=== PATIENT | female | born 1965 | race Caucasian/White ===

== ENCOUNTER 2016-10-02 11:47 | Emergency (ER) | payer OTHER ==
[~2016-10-02] VITALS: Ht 152.4 cm; Wt 60.0 kg
[2016-10-02 11:50] VITALS: BP 126/88; PULSE 96; RESP 18; TEMP 98.2; O2SAT 97
--- NOTE | 2016-10-02 12:10 | PD ---
HPI Chief Complaint: Injury Time Seen by Provider: 12:03 Travel History International Travel<30 days: No Contact w/Intl Traveler<30days: No Traveled to known affect area: No History of Present Illness HPI 50-year-old female visiting from [facility] presents to the emergency Department with pain and swelling to the right distal dorsal foot with localized swelling, warmth, and ecchymosis into the third fourth toes. Patient states possibly 5 days ago she had a "foot cramp" which lasted according to her 3 hours. She denies any specific injury. She denies fever, chills, but the patient's sister who is here with her states there was redness and streaking earlier today. Patient has no history of cellulitis or MRSA in the past. She has no history of gout. Patient is here until Saturday of this week. She feels her pain and swelling is getting worse, to the point of not being able to bear weight today. Her pain right now is a 6 out of 10 worse with ambulation or bearing weight. Patient flew down to [place] yesterday. [facility] Social History Alcohol Use: Yes Tobacco Use: No Substance Use: No Allergies-Medications (Allergen,Severity, Reaction): Coded Allergies: No Known Allergies (Unverified , 10/02/16) Review of Systems Except as stated in HPI: all other systems reviewed are Neg General / Constitutional: No: Fever Eyes: No: Visual changes HENT: No: Headaches Cardiovascular: No: Chest Pain or Discomfort Respiratory: No: Shortness of Breath Gastrointestinal: No: Abdominal Pain Genitourinary: No: Dysuria Musculoskeletal: Positive: Arthralgias, Limited ROM, Pain Skin: No Rash Neurologic: No: Weakness Psychiatric: No: Depression Endocrine: No: Polydipsia Hematologic/Lymphatic: No: Easy Bruising Physical Exam Narrative GENERAL: Patient is in no acute distress SKIN: Warm and dry. Normal color. Normal turgor. Patient has mild erythema, ecchymosis, and swelling to the distal dorsal foot on the right just proximal to the third and fourth toes. There are no obvious breaks in the skin between the toes. It has mild increased warmth compared to the surrounding tissue. HEAD: Atraumatic. Normocephalic. EYES: Pupils equal and round. No scleral icterus. No injection or drainage. ENT: No nasal bleeding or discharge. Mucous membranes pink and moist. Pharynx is clear. Airway is patent. NECK: Trachea midline. Supple and nontender. CARDIOVASCULAR: Regular rate and rhythm. RESPIRATORY: No accessory muscle use. Clear to auscultation. Breath sounds equal bilaterally. MUSCULOSKELETAL: Extremities without clubbing, cyanosis, or edema. No obvious deformities. Mild swelling to the distal dorsal right foot. Pain is localized to the dorsum but not the sole of the right foot. NEUROLOGICAL: Awake and alert. No obvious cranial nerve deficits. Motor grossly within normal limits. Five out of 5 muscle strength in the arms and legs. Normal speech. PSYCHIATRIC: Appropriate mood and affect; insight and judgment normal. Data Data Last Documented VS Vital Signs Date Time Temp Pulse Resp B/P Pulse Ox O2 Delivery O2 Flow Rate FiO2 10/02/16 11:50 98.2 96 18 126/88 97 Orders Foot, Complete ([id number]) (10/02/16 12:02) Ice/Cold Pack (10/02/16 12:02) MDM Medical Decision Making Medical Screen Exam Complete: Yes Emergency Medical Condition: Yes Differential Diagnosis Fracture. Contusion. Cellulitis. Tendinitis. Narrative Course Patient is medically stable at time of exam. Ice was applied to the tender area. X-ray of the right foot is ordered. X-ray shows a small nondisplaced fracture of the second metatarsal. Patient is placed in a postop shoe. Patient is to take Tylenol as needed, elevate, and ice the foot. Recommend limited walking until seen in follow-up by the underwriter mortgage loan or orthopedist in [place]. Diagnosis Primary Impression: Fracture of metatarsal of right foot, closed Qualified Code: S92.324A - Closed nondisplaced fracture of second metatarsal bone of right foot, initial encounter Referrals: Orthopedist Manager Utilization Review Patient Instructions: Foot Fracture in Adults (ED), General Instructions Additional Instructions: X-ray shows a small nondisplaced fracture of the second metatarsal. Patient is placed in a postop shoe. Patient is to take Tylenol as needed, elevate, and ice the foot. Recommend limited walking until seen in follow-up by the underwriter mortgage loan or orthopedist in [place]. Disposition: 01 DISCHARGE HOME Condition: Stable Darin Nicholson Oct 02, 2016 12:10
--- NOTE | 2016-10-02 12:54 | RADRPT ---
EXAM DATE/TIME: 10/02/2016 12:21 [facility] COMPARISON: No previous studies available for comparison. INDICATIONS : Right foot pain, after a muscle spasm in foot. MEDICAL HISTORY : None. SURGICAL HISTORY : ORIF right tib/fib ENCOUNTER: Initial ACUITY: 3 days PAIN SCORE: 8/10 LOCATION: Right lateral foot FINDINGS: 3 views of the right foot demonstrate demineralization of the bones. There is a transverse lucency th rough the distal second metatarsal diaphysis. There is only visualized to extend through the lateral cortex and not the medial cortex. No other fracture is identified. Lisfranc joint is intact. No soft tissue abnormality is appreciated. There is a partially visualized intramedullary oliver in the distal t ibia. CONCLUSION: Nondisplaced fracture of the distal second metatarsal diaphysis. Based on location and apparent under mineralization of the bones this could represent an insufficiency fracture. Fermin Oquendo MD on October 02, 2016 at 12:50 Board Certified Radiologist. This report was verified electronically.
== END 2016-10-02 13:02 | disposition home or self-care (01) ==
LOC: NEPK 11:47
DX: S92.324A Nondisplaced fracture of second metatarsal bone, right foot, initial encounter for closed fracture (principal); X58.XXXA Exposure to other specified factors, initial encounter
CPT/HCPCS: 73630; 99283